=== PATIENT | male | born 1935 | race Caucasian/White ===

== ENCOUNTER 2023-01-07 16:57 | Inpatient (IN) | payer OTHER, BC ==
[2023-01-07] MEDS ORDERED: LACTATED RINGERS SOLUTION 1000 ML INFUS.BAG IV ONE (18:17)
[2023-01-07 19:12] LABS: BASO % 0.5 % (0-2.0); EOS % 0.7 % (0-4.5); HEMATOCRIT 39.5 % (35.4-49); HEMOGLOBIN 13.5 GM/dL (11.7-16.9); LYMPH % 4.8 % (8-40); MCH 29.9 pg (25.7-33.7); MCHC 34.2 g/dl (32.0-35.9); MEAN CELL VOLUME 87.4 fl (80-96); MEAN PLT VOLUME 7.1 fl (7.5-11.1); MONO % 5.3 % (3.8-10.2); NEUT % 88.7 % (42.8-82.8); PLATELET COUNT 398 10^3/uL (134-434); RBC 4.52 M/mm3 (4.00-5.60); RDW 13.1 % (11.9-15.9); WHITE BLOOD COUNT 23.5 K/mm3 (4.0-10.0)
[2023-01-07] MEDS ORDERED: CEFTRIAXONE 1,000 MG in DEXTROSE 5%-WATER - 50 ML IVPB ONE (19:21)
[2023-01-07 19:41] LABS: POTASSIUM 4.4 mmol/L (3.5-5.1)
[2023-01-07 19:44] LABS: ALBUMIN 4.6 g/dl (3.4-5.0); BLOOD UREA NITROGEN 49.9 mg/dL (7-18); CALCIUM 10.4 mg/dL (8.5-10.1)
[2023-01-07 19:48] LABS: CREATININE 2.9 mg/dL (0.55-1.3)
[2023-01-07 19:49] LABS: BILIRUBIN,TOTAL 0.7 mg/dL (0.2-1); TOT PROT 7.7 g/dl (6.4-8.2)
[2023-01-07] MEDS ORDERED: CEFTRIAXONE 1 GM/50 ML BAG ONE (19:51)
[2023-01-07 20:20] LABS: URINE APPEARANCE TURBID; URINE COLOR RED
[2023-01-07 20:22] LABS: URINE RBC >100 /hpf (0-4); URINE WBC 0-3 (NEGATIVE)
[2023-01-07 20:23] LABS: URINE BACTERIA FEW /hpf (NEGATIVE)
[2023-01-07] MEDS ORDERED: amLODIPine BESYLATE 2.5 MG TABLET (FP) PO SCH ×2 (23:41→23:50)
[2023-01-07 23:56] LABS: BASO % 0.4 % (0-2.0); EOS % 0.1 % (0-4.5); HEMATOCRIT 34.4 % (35.4-49); HEMOGLOBIN 11.7 GM/dL (11.7-16.9); LYMPH % 6.7 % (8-40); MCH 29.8 pg (25.7-33.7); MCHC 34.1 g/dl (32.0-35.9); MEAN CELL VOLUME 87.3 fl (80-96); MEAN PLT VOLUME 7.2 fl (7.5-11.1); MONO % 4.3 % (3.8-10.2); NEUT % 88.5 % (42.8-82.8); PLATELET COUNT 367 10^3/uL (134-434); RBC 3.94 M/mm3 (4.00-5.60); RDW 12.9 % (11.9-15.9); WHITE BLOOD COUNT 26.2 K/mm3 (4.0-10.0)
[2023-01-08] MEDS ORDERED: MAG HYDROX/AL HYDROX/SIMETH 30 ML UNIT-DOSE CUP PO ONE (01:18)
[2023-01-08] MEDS ORDERED: MAG HYDROX/AL HYDROX/SIMETH 30 ML UNIT-DOSE CUP ONE (01:26)
[2023-01-08 06:31] LABS: BASO % 0.6 % (0-2.0); HEMATOCRIT 34.7 % (35.4-49); HEMOGLOBIN 11.6 GM/dL (11.7-16.9); LYMPH % 4.5 % (8-40); MCH 29.6 pg (25.7-33.7); MCHC 33.4 g/dl (32.0-35.9); MEAN CELL VOLUME 88.8 fl (80-96); MEAN PLT VOLUME 7.5 fl (7.5-11.1); NEUT % 88.9 % (42.8-82.8); PLATELET COUNT 336 10^3/uL (134-434); RBC 3.91 M/mm3 (4.00-5.60); RDW 13.1 % (11.9-15.9); WHITE BLOOD COUNT 19.9 K/mm3 (4.0-10.0)
[2023-01-08 07:02] LABS: POTASSIUM 3.6 mmol/L (3.5-5.1)
[2023-01-08 07:06] LABS: BLOOD UREA NITROGEN 49.9 mg/dL (7-18)
[2023-01-08 07:09] LABS: CREATININE 2.8 mg/dL (0.55-1.3)
[2023-01-08 08:14] LABS: ANISOCYTOSIS 1+; MACROCYTOSIS 0
[2023-01-08] MEDS ORDERED: amLODIPine BESYLATE 2.5 MG TABLET (FP) ONE (10:28)
[2023-01-08] MEDS ORDERED: MAG HYDROX/AL HYDROX/SIMETH 30 ML UNIT-DOSE CUP PO PRN (10:56)
[2023-01-08] MEDS ORDERED: CEFTRIAXONE 1 GM/50 ML BAG ONE (12:09)
[2023-01-08] MEDS: CEFTRIAXONE 1 GM in DEXTROSE 5%-WATER - 50 ML IVPB SCH (12:20)
[2023-01-08] MEDS ORDERED: SODIUM CHLORIDE 0.45% 1,000 ML IV SCH (12:45)
[2023-01-08] MEDS: amLODIPine BESYLATE 5 MG TABLET (FP) PO SCH (15:15)
[2023-01-08] MEDS: FINASTERIDE 5 MG TABLET (FP) PO SCH (15:15)
[2023-01-08] MEDS ORDERED: ACETAMINOPHEN 325 MG TABLET (FP) PO PRN (17:27)
[2023-01-08] MEDS ORDERED: ATORVASTATIN CA 10 MG TABLET (FP) PO SCH (22:00)
[2023-01-08] MEDS ORDERED: SENNOSIDES 8.6MG TABLET (FP) PO SCH (22:00)
[2023-01-08] MEDS ORDERED: HEPARIN NA (PORCINE) 5,000 UNITS/ML 1ML VIAL SQ SCH (22:00)
[2023-01-09] MEDS ORDERED: POLYETHYLENE GLYCOL (HEALTHYLAX) 3350 17 GM PACKET PO SCH (00:15)
[2023-01-09 07:46] LABS: BASO % 0.5 % (0-2.0); EOS % 1.2 % (0-4.5); HEMATOCRIT 32.5 % (35.4-49); HEMOGLOBIN 11.1 GM/dL (11.7-16.9); LYMPH % 6.9 % (8-40); MCH 30.3 pg (25.7-33.7); MCHC 34.2 g/dl (32.0-35.9); MEAN CELL VOLUME 88.5 fl (80-96); MEAN PLT VOLUME 7.8 fl (7.5-11.1); MONO % 7.7 % (3.8-10.2); NEUT % 83.7 % (42.8-82.8); PLATELET COUNT 307 10^3/uL (134-434); RBC 3.67 M/mm3 (4.00-5.60); RDW 12.9 % (11.9-15.9); WHITE BLOOD COUNT 17.9 K/mm3 (4.0-10.0)
[2023-01-09 08:04] LABS: POTASSIUM 3.2 mmol/L (3.5-5.1)
[2023-01-09 08:19] LABS: BLOOD UREA NITROGEN 44.6 mg/dL (7-18); CREATININE 2.5 mg/dL (0.55-1.3)
[2023-01-09 08:20] LABS: CALCIUM 8.9 mg/dL (8.5-10.1); TOT PROT 5.7 g/dl (6.4-8.2)
[2023-01-09 08:26] LABS: ALBUMIN 3.3 g/dl (3.4-5.0)
[2023-01-09] MEDS ORDERED: POTASSIUM CHLORIDE TABS 10 MEQ TABLET.ER (FP) PO ONE (08:50)
[2023-01-09] MEDS: amLODIPine BESYLATE 5 MG TABLET (FP) PO SCH (10:17)
[2023-01-09] MEDS: CEFTRIAXONE 1 GM in DEXTROSE 5%-WATER - 50 ML IVPB SCH (10:18)
[2023-01-09] MEDS: FINASTERIDE 5 MG TABLET (FP) PO SCH (10:18)
[2023-01-09 13:36] VITALS: BP 163/82; PULSE 99; RESP 20; TEMP 98.2
== END 2023-01-09 18:34 | disposition home or self-care (01) | DRG 683 ==
LOC: JER 16:57 → JERBED 19:48 → J7W 01-08 12:45
PROVIDERS: ADMIT Specialist; ATTEND Specialist
DX: I12.9 Hypertensive chronic kidney disease with stage 1 through stage 4 chronic kidney disease, or unspecified chronic kidney disease (principal); N13.30 Unspecified hydronephrosis; R31.9 Hematuria, unspecified; N18.9 Chronic kidney disease, unspecified; E78.5 Hyperlipidemia, unspecified; D72.829 Elevated white blood cell count, unspecified; N40.1 Benign prostatic hyperplasia with lower urinary tract symptoms; R33.9 Retention of urine, unspecified
CPT/HCPCS: 36415; 71045-TC-FY; 76775-TC; 80048; 80053; 81003; 82962; 84484; 85025; 86850; 86900; 86901; 87086; 93005; 93010; 99285-25

== ENCOUNTER 2023-03-08 09:39 | Emergency (ER) | payer OTHER, BC ==
[2023-03-08 09:54] VITALS: BP 153/78; PULSE 75; RESP 17; TEMP 98.3; BMI 22.2
== END 2023-03-08 11:20 | disposition home or self-care (01) ==
LOC: FER 09:39
DX: Z46.6 Encounter for fitting and adjustment of urinary device (principal)
CPT/HCPCS: 99282-25

== ENCOUNTER 2023-03-18 18:58 | Inpatient (IN) | payer OTHER, BC ==
[2023-03-18] MEDS ORDERED: ACETAMINOPHEN 1000 MG/100 ML BAG IVPB ONE (19:48)
[2023-03-18] MEDS ORDERED: PIPERACILLIN/TAZOB 3.375 GM 3.375 GM in DEXTROSE 5%-WATER - 50 ML IVPB ONE (19:48)
[2023-03-18] MEDS ORDERED: VANCOMYCIN 1,000 MG in DEXTROSE 5%-WATER - 250 ML IVPB ONE (19:48)
[2023-03-18] MEDS ORDERED: ACETAMINOPHEN INJECTION 100 ML IVPB ONE (19:50)
[2023-03-18] MEDS ORDERED: PIPERACILLIN/TAZOB 3.375 GM 3.375 GM/50 ML BAG IVPB ONE (19:51)
[2023-03-18 20:15] LABS: HEMATOCRIT 29.2 % (35.4-49); HEMOGLOBIN 9.5 GM/dL (11.7-16.9); MCH 27.8 pg (25.7-33.7); MCHC 32.5 g/dl (32.0-35.9); MEAN CELL VOLUME 85.6 fl (80-96); MEAN PLT VOLUME 6.5 fl (7.5-11.1); PLATELET COUNT 460 10^3/uL (134-434); RBC 3.41 M/mm3 (4.00-5.60); RDW 14.5 % (11.9-15.9)
[2023-03-18 20:21] LABS: WHITE BLOOD COUNT 31.3 K/mm3 (4.0-10.0)
[2023-03-18 20:27] LABS: INR 1.39 (0.83-1.09); PROTHROMBIN TIME (PATIENT) 16.1 SEC (9.7-13.0)
[2023-03-18 20:30] LABS: ACTIVATED PTT 31.5 SECONDS (25.2-36.5)
[2023-03-18 20:42] LABS: CHLORIDE 88 mmol/L (98-107); POTASSIUM 4.1 mmol/L (3.5-5.1); SODIUM 121 mmol/L (136-145)
[2023-03-18 20:44] LABS: CALCIUM 8.4 mg/dL (8.5-10.1)
[2023-03-18 20:45] LABS: ALBUMIN 2.5 g/dl (3.4-5.0); ANION GAP 12 mmol/L (4-13); BLOOD UREA NITROGEN 43.8 mg/dL (7-18); CO2 22 mmol/L (21-32); GLUCOSE,RANDOM 158 mg/dL (74-106)
[2023-03-18 20:46] LABS: EPI CELLS 2 /uL (0-25.1); HYALINE CASTS 0 /uL (0-3.1); PH,URINE 6.5 (5.0-8.0); URINE APPEARANCE TURBID; URINE BACTERIA 921 /uL (0-1359); URINE BILIRUBIN NEGATIVE (NEGATIVE); URINE COLOR YELLOW; URINE GLUCOSE (UA) NEGATIVE (NEGATIVE); URINE KETONE NEGATIVE (NEGATIVE); URINE LEUK ESTERASE 3+ (NEGATIVE); URINE NITRITE NEGATIVE (NEGATIVE); URINE PROTEIN 3+ (NEGATIVE); URINE RBC 322 /uL (0-23.9); URINE UROBILINOGEN 0.2 mg/dL (0.2-1.0); URINE WBC 7323 /uL (0-25.8)
[2023-03-18 20:46] LABS: VENOUS O2 SATURATION 91.7 % (70-80); VENOUS PCO2 32.8 mmHg (38-52); VENOUS PH 7.454 (7.310-7.410)
[2023-03-18 20:48] LABS: CREATININE 2.5 mg/dL (0.55-1.3); SGOT/AST 34 U/L (15-37)
[2023-03-18 20:50] LABS: BILIRUBIN,TOTAL 0.4 mg/dL (0.2-1); TOT PROT 5.6 g/dl (6.4-8.2)
[2023-03-18 20:51] LABS: ALK PHOS 66 U/L (45-117)
[2023-03-18 20:55] LABS: SGPT/ALT 27 U/L (13-61)
[2023-03-18] MEDS: LACTATED RINGERS SOLUTION 1,000 ML/1,000 ML INFUS.BAG IV SCH (20:58)
[2023-03-18 21:25] LABS: ANISOCYTOSIS 0; MACROCYTOSIS 0; OVALOCYTE 1+
[2023-03-18] MEDS ORDERED: VANCOMYCIN 1 GRAM (PRE-DOCKED) 1,000 MG/250 ML BAG IVPB ONE (21:38)
[2023-03-18] MEDS ORDERED: SODIUM CHLORIDE 1,000 ML IV SCH (21:45)
[2023-03-18] MEDS ORDERED: MAG HYDROX/AL HYDROX/SIMETH 30 ML UNIT-DOSE CUP PO PRN (23:29)
[2023-03-19] MEDS ORDERED: ACETAMINOPHEN 1000 MG/100 ML BAG IVPB ONE (05:53)
[2023-03-19] MEDS ORDERED: ACETAMINOPHEN INJECTION 100 ML IVPB ONE (05:54)
[2023-03-19] MEDS ORDERED: ACETAMINOPHEN 325 MG TABLET (FP) ONE ×2 (09:15→13:16)
[2023-03-19] MEDS: amLODIPine BESYLATE 5 MG TABLET (FP) PO SCH (09:22)
[2023-03-19] MEDS: ACETAMINOPHEN 325 MG TABLET (FP) PO PRN ×2 (09:22→23:35)
[2023-03-19] MEDS: FINASTERIDE 5 MG TABLET (FP) PO SCH (09:22)
[2023-03-19 12:01] LABS: HEMATOCRIT 28.6 % (35.4-49); HEMOGLOBIN 9.4 GM/dL (11.7-16.9); MCH 27.9 pg (25.7-33.7); MCHC 32.9 g/dl (32.0-35.9); MEAN PLT VOLUME 6.4 fl (7.5-11.1); PLATELET COUNT 473 10^3/uL (134-434); RBC 3.36 M/mm3 (4.00-5.60); RDW 14.4 % (11.9-15.9)
[2023-03-19 12:18] LABS: POTASSIUM 3.9 mmol/L (3.5-5.1)
[2023-03-19 12:20] LABS: CALCIUM 8.5 mg/dL (8.5-10.1)
[2023-03-19 12:21] LABS: ALBUMIN 2.2 g/dl (3.4-5.0); BLOOD UREA NITROGEN 42.1 mg/dL (7-18)
[2023-03-19 12:21] LABS: WHITE BLOOD COUNT 32.1 K/mm3 (4.0-10.0)
[2023-03-19 12:24] LABS: CREATININE 2.4 mg/dL (0.55-1.3)
[2023-03-19 12:26] LABS: BILIRUBIN,TOTAL 0.3 mg/dL (0.2-1); TOT PROT 5.1 g/dl (6.4-8.2)
[2023-03-19 12:51] LABS: ANISOCYTOSIS 0; MACROCYTOSIS 0
[2023-03-19] MEDS: SODIUM CHLORIDE 0.45% 1,000 ML IV SCH (13:22)
[2023-03-19] MEDS ORDERED: PIPERACILLIN/TAZOB 2.25 GM 2.25 GM/50 ML BAG IVPB ONE (13:23)
[2023-03-19] MEDS ORDERED: ACETAMINOPHEN 500 MG TABLET (FP) PO ONE (13:30)
[2023-03-19] MEDS: PIPERACILLIN/TAZOB 2.25 GM 2.25 GM in DEXTROSE 5%-WATER - 50 ML IVPB SCH ×2 (13:35→19:14)
[2023-03-19] MEDS: ALBUTEROL SO4 2.5/IPRATROPIUM 0.5 INH SOL 3 ML VIAL.NEB. NEB PRN (13:40)
[2023-03-19] MEDS ORDERED: PIPERACILLIN/TAZOB 2.25 GM 2.25 GM in DEXTROSE 5%-WATER - 50 ML IVPB ONE (14:00)
[2023-03-19] MEDS ORDERED: ACETAMINOPHEN 325 MG TABLET (FP) PO ONE (14:00)
[2023-03-19] MEDS ORDERED: VANCOMYCIN 1 GRAM (PRE-DOCKED) 1,000 MG/250 ML BAG IVPB ONE ×2 (14:00→14:06)
[2023-03-19] MEDS: HEPARIN NA (PORCINE) 5,000 UNITS/ML 1ML VIAL SQ SCH (22:05)
[2023-03-19] MEDS: ATORVASTATIN CA 10 MG TABLET (FP) PO SCH (22:05)
[2023-03-19] MEDS: POLYETHYLENE GLYCOL (HEALTHYLAX) 3350 17 GM PACKET PO SCH (22:06)
[2023-03-19] MEDS: SENNOSIDES 8.6MG TABLET (FP) PO SCH (22:06)
[2023-03-19] MEDS: LACTATED RINGERS SOLUTION 1,000 ML/1,000 ML INFUS.BAG IV SCH (22:07)
[2023-03-20] MEDS: PIPERACILLIN/TAZOB 2.25 GM 2.25 GM in DEXTROSE 5%-WATER - 50 ML IVPB SCH ×3 (01:11→17:12)
[2023-03-20] MEDS: SODIUM CHLORIDE 0.45% 1,000 ML IV SCH ×2 (07:09→13:30)
[2023-03-20] MEDS: amLODIPine BESYLATE 5 MG TABLET (FP) PO SCH (09:58)
[2023-03-20] MEDS: FINASTERIDE 5 MG TABLET (FP) PO SCH (09:58)
[2023-03-20] MEDS: HEPARIN NA (PORCINE) 5,000 UNITS/ML 1ML VIAL SQ SCH ×2 (09:59→21:42)
[2023-03-20 10:19] LABS: HEMATOCRIT 26.3 % (35.4-49); HEMOGLOBIN 8.6 GM/dL (11.7-16.9); MCH 27.8 pg (25.7-33.7); MCHC 32.8 g/dl (32.0-35.9); MEAN CELL VOLUME 84.7 fl (80-96); MEAN PLT VOLUME 6.5 fl (7.5-11.1); PLATELET COUNT 479 10^3/uL (134-434); RDW 14.9 % (11.9-15.9)
[2023-03-20 10:38] LABS: POTASSIUM 3.7 mmol/L (3.5-5.1)
[2023-03-20 10:45] LABS: ALBUMIN 2.1 g/dl (3.4-5.0); BLOOD UREA NITROGEN 45.4 mg/dL (7-18); CALCIUM 8.6 mg/dL (8.5-10.1)
[2023-03-20 10:48] LABS: CREATININE 2.9 mg/dL (0.55-1.3)
[2023-03-20 10:50] LABS: BILIRUBIN,TOTAL 0.2 mg/dL (0.2-1); TOT PROT 5.1 g/dl (6.4-8.2)
[2023-03-20 11:27] LABS: ANISOCYTOSIS 0; HELMET CELLS 0; HOWELL-JOLLY BODIES 0; MACROCYTOSIS 0; OVALOCYTE 0; ROULEAU 0; SICKELED CELLS 0; TARGET CELLS 0; TEAR DROP CELLS 0; TOXIC GRANULATION 0
[2023-03-20] MEDS: ACETAMINOPHEN 325 MG TABLET (FP) PO PRN ×2 (11:49→18:59)
[2023-03-20 15:49] LABS: WHITE BLOOD COUNT 32.8 K/mm3 (4.0-10.0)
[2023-03-20] MEDS: SENNOSIDES 8.6MG TABLET (FP) PO SCH (21:41)
[2023-03-20] MEDS: ATORVASTATIN CA 10 MG TABLET (FP) PO SCH (21:41)
[2023-03-20] MEDS: POLYETHYLENE GLYCOL (HEALTHYLAX) 3350 17 GM PACKET PO SCH (21:42)
[2023-03-21] MEDS: PIPERACILLIN/TAZOB 2.25 GM 2.25 GM in DEXTROSE 5%-WATER - 50 ML IVPB SCH ×3 (03:14→17:29)
[2023-03-21] MEDS: ACETAMINOPHEN 325 MG TABLET (FP) PO PRN ×2 (06:14→16:06)
[2023-03-21] MEDS: ALBUTEROL SO4 2.5/IPRATROPIUM 0.5 INH SOL 3 ML VIAL.NEB. NEB PRN ×2 (08:44→16:43)
[2023-03-21] MEDS: FINASTERIDE 5 MG TABLET (FP) PO SCH (09:42)
[2023-03-21] MEDS: amLODIPine BESYLATE 5 MG TABLET (FP) PO SCH (09:42)
[2023-03-21] MEDS: HEPARIN NA (PORCINE) 5,000 UNITS/ML 1ML VIAL SQ SCH ×2 (09:43→21:50)
[2023-03-21 10:43] LABS: HEMATOCRIT 24.9 % (35.4-49); HEMOGLOBIN 8.1 GM/dL (11.7-16.9); MCH 27.7 pg (25.7-33.7); MCHC 32.6 g/dl (32.0-35.9); MEAN CELL VOLUME 84.9 fl (80-96); MEAN PLT VOLUME 6.5 fl (7.5-11.1); PLATELET COUNT 416 10^3/uL (134-434); RBC 2.93 M/mm3 (4.00-5.60); WHITE BLOOD COUNT 22.6 K/mm3 (4.0-10.0)
[2023-03-21 11:07] LABS: POTASSIUM 3.7 mmol/L (3.5-5.1)
[2023-03-21 11:09] LABS: CALCIUM 8.1 mg/dL (8.5-10.1)
[2023-03-21 11:10] LABS: ALBUMIN 1.9 g/dl (3.4-5.0); BLOOD UREA NITROGEN 44.5 mg/dL (7-18)
[2023-03-21 11:13] LABS: CREATININE 2.8 mg/dL (0.55-1.3)
[2023-03-21 11:15] LABS: BILIRUBIN,TOTAL 0.3 mg/dL (0.2-1); TOT PROT 4.8 g/dl (6.4-8.2)
[2023-03-21 12:05] LABS: ANISOCYTOSIS 0; HELMET CELLS 0; HOWELL-JOLLY BODIES 0; MACROCYTOSIS 0; OVALOCYTE 0; ROULEAU 0; SICKELED CELLS 0; TARGET CELLS 0; TEAR DROP CELLS 0; TOXIC GRANULATION 0
[2023-03-21] MEDS: SODIUM CHLORIDE 0.45% 1,000 ML IV SCH ×2 (13:58→23:33)
[2023-03-21] MEDS: POLYETHYLENE GLYCOL (HEALTHYLAX) 3350 17 GM PACKET PO SCH (21:50)
[2023-03-21] MEDS: ATORVASTATIN CA 10 MG TABLET (FP) PO SCH (21:51)
[2023-03-21] MEDS: SENNOSIDES 8.6MG TABLET (FP) PO SCH (21:51)
[2023-03-22] MEDS: PIPERACILLIN/TAZOB 2.25 GM 2.25 GM in DEXTROSE 5%-WATER - 50 ML IVPB SCH ×3 (01:57→17:50)
[2023-03-22] MEDS: ACETAMINOPHEN 325 MG TABLET (FP) PO PRN ×2 (02:29→11:13)
[2023-03-22] MEDS: ALBUTEROL SO4 2.5/IPRATROPIUM 0.5 INH SOL 3 ML VIAL.NEB. NEB PRN ×4 (08:03→20:55)
[2023-03-22] MEDS: amLODIPine BESYLATE 5 MG TABLET (FP) PO SCH (09:54)
[2023-03-22] MEDS: FINASTERIDE 5 MG TABLET (FP) PO SCH (09:54)
[2023-03-22] MEDS: HEPARIN NA (PORCINE) 5,000 UNITS/ML 1ML VIAL SQ SCH ×2 (09:54→22:27)
[2023-03-22 10:24] LABS: HEMATOCRIT 24.7 % (35.4-49); HEMOGLOBIN 8.4 GM/dL (11.7-16.9); MCHC 34.1 g/dl (32.0-35.9); MEAN CELL VOLUME 84.9 fl (80-96); MEAN PLT VOLUME 6.3 fl (7.5-11.1); PLATELET COUNT 444 10^3/uL (134-434); RBC 2.91 M/mm3 (4.00-5.60); RDW 15.2 % (11.9-15.9); WHITE BLOOD COUNT 22.9 K/mm3 (4.0-10.0)
[2023-03-22 11:05] LABS: CALCIUM 8.8 mg/dL (8.5-10.1)
[2023-03-22 11:06] LABS: BLOOD UREA NITROGEN 39.6 mg/dL (7-18)
[2023-03-22 11:09] LABS: CREATININE 2.6 mg/dL (0.55-1.3)
[2023-03-22 11:10] LABS: BILIRUBIN,TOTAL 0.6 mg/dL (0.2-1); TOT PROT 5.2 g/dl (6.4-8.2)
[2023-03-22 11:11] LABS: ANISOCYTOSIS 0; MACROCYTOSIS 0
[2023-03-22] MEDS: SODIUM CHLORIDE 0.45% 1,000 ML IV SCH (12:21)
[2023-03-22] MEDS ORDERED: MAGNESIUM HYDROX 2400MG/30ML ORAL SUSPENSION 30 ML CUP PO PRN (14:56)
[2023-03-22] MEDS: POLYETHYLENE GLYCOL (HEALTHYLAX) 3350 17 GM PACKET PO SCH (22:26)
[2023-03-22] MEDS: SENNOSIDES 8.6MG TABLET (FP) PO SCH (22:27)
[2023-03-22] MEDS: ATORVASTATIN CA 10 MG TABLET (FP) PO SCH (22:27)
[2023-03-23] MEDS: PIPERACILLIN/TAZOB 2.25 GM 2.25 GM in DEXTROSE 5%-WATER - 50 ML IVPB SCH ×2 (02:10→09:41)
[2023-03-23] MEDS: SODIUM CHLORIDE 0.45% 1,000 ML IV SCH ×2 (02:13→17:43)
[2023-03-23] MEDS: ALBUTEROL SO4 2.5/IPRATROPIUM 0.5 INH SOL 3 ML VIAL.NEB. NEB PRN ×4 (07:45→23:55)
[2023-03-23] MEDS: ASPIRIN COATED 81 MG TABLET.EC PO SCH (09:40)
[2023-03-23] MEDS: FINASTERIDE 5 MG TABLET (FP) PO SCH (09:40)
[2023-03-23] MEDS: amLODIPine BESYLATE 5 MG TABLET (FP) PO SCH (09:40)
[2023-03-23] MEDS: HEPARIN NA (PORCINE) 5,000 UNITS/ML 1ML VIAL SQ SCH ×2 (09:41→22:00)
[2023-03-23 09:51] LABS: HEMATOCRIT 27.9 % (35.4-49); HEMOGLOBIN 9.4 GM/dL (11.7-16.9); MCH 28.6 pg (25.7-33.7); MCHC 33.7 g/dl (32.0-35.9); MEAN CELL VOLUME 84.9 fl (80-96); MEAN PLT VOLUME 6.2 fl (7.5-11.1); PLATELET COUNT 500 10^3/uL (134-434); POTASSIUM 3.8 mmol/L (3.5-5.1); RBC 3.29 M/mm3 (4.00-5.60); RDW 15.6 % (11.9-15.9); WHITE BLOOD COUNT 23.3 K/mm3 (4.0-10.0)
[2023-03-23 10:12] LABS: ALBUMIN 2.4 g/dl (3.4-5.0); BLOOD UREA NITROGEN 40.1 mg/dL (7-18)
[2023-03-23 10:15] LABS: CREATININE 2.5 mg/dL (0.55-1.3)
[2023-03-23 10:17] LABS: BILIRUBIN,TOTAL 0.7 mg/dL (0.2-1); TOT PROT 5.7 g/dl (6.4-8.2)
[2023-03-23 11:44] LABS: ANISOCYTOSIS 2+; MACROCYTOSIS 0
[2023-03-23] MEDS ORDERED: LORATADINE 10 MG TABLET PO ONE (17:45)
[2023-03-23] MEDS: POLYETHYLENE GLYCOL (HEALTHYLAX) 3350 17 GM PACKET PO SCH (21:59)
[2023-03-23] MEDS: SENNOSIDES 8.6MG TABLET (FP) PO SCH (21:59)
[2023-03-23] MEDS: ATORVASTATIN CA 10 MG TABLET (FP) PO SCH (21:59)
[2023-03-24] MEDS: SODIUM CHLORIDE 0.45% 1,000 ML IV SCH ×2 (02:06→13:26)
[2023-03-24] MEDS: FINASTERIDE 5 MG TABLET (FP) PO SCH (09:40)
[2023-03-24] MEDS: ASPIRIN COATED 81 MG TABLET.EC PO SCH (09:40)
[2023-03-24] MEDS: HEPARIN NA (PORCINE) 5,000 UNITS/ML 1ML VIAL SQ SCH ×2 (09:40→21:40)
[2023-03-24] MEDS: amLODIPine BESYLATE 5 MG TABLET (FP) PO SCH (09:40)
[2023-03-24 11:04] LABS: POTASSIUM 4.2 mmol/L (3.5-5.1)
[2023-03-24 11:06] LABS: CALCIUM 8.7 mg/dL (8.5-10.1)
[2023-03-24 11:07] LABS: ALBUMIN 2.4 g/dl (3.4-5.0); BLOOD UREA NITROGEN 43.3 mg/dL (7-18)
[2023-03-24 11:10] LABS: CREATININE 2.3 mg/dL (0.55-1.3)
[2023-03-24 11:11] LABS: BILIRUBIN,TOTAL 0.6 mg/dL (0.2-1); HEMATOCRIT 29.6 % (35.4-49); HEMOGLOBIN 9.6 GM/dL (11.7-16.9); MCH 27.8 pg (25.7-33.7); MCHC 32.3 g/dl (32.0-35.9); MEAN PLT VOLUME 6.4 fl (7.5-11.1); PLATELET COUNT 672 10^3/uL (134-434); RBC 3.44 M/mm3 (4.00-5.60); RDW 15.3 % (11.9-15.9); TOT PROT 6.1 g/dl (6.4-8.2); WHITE BLOOD COUNT 27.9 K/mm3 (4.0-10.0)
[2023-03-24 12:50] LABS: ANISOCYTOSIS 0; MACROCYTOSIS 0
[2023-03-24] MEDS: ATORVASTATIN CA 10 MG TABLET (FP) PO SCH (21:40)
[2023-03-24] MEDS: POLYETHYLENE GLYCOL (HEALTHYLAX) 3350 17 GM PACKET PO SCH (21:41)
[2023-03-24 22:58] VITALS: RESP 18
[2023-03-25] MEDS: SODIUM CHLORIDE 0.45% 1,000 ML IV SCH (05:47)
[2023-03-25] MEDS: ALBUTEROL SO4 2.5/IPRATROPIUM 0.5 INH SOL 3 ML VIAL.NEB. NEB PRN ×2 (07:40→15:35)
[2023-03-25 10:03] LABS: HEMATOCRIT 29.9 % (35.4-49); HEMOGLOBIN 9.8 GM/dL (11.7-16.9); MCH 27.9 pg (25.7-33.7); MCHC 32.8 g/dl (32.0-35.9); MEAN CELL VOLUME 84.9 fl (80-96); MEAN PLT VOLUME 6.3 fl (7.5-11.1); PLATELET COUNT 715 10^3/uL (134-434); RBC 3.52 M/mm3 (4.00-5.60); RDW 15.4 % (11.9-15.9); WHITE BLOOD COUNT 22.9 K/mm3 (4.0-10.0)
[2023-03-25 10:27] LABS: POTASSIUM 4.4 mmol/L (3.5-5.1)
[2023-03-25 10:36] LABS: ALBUMIN 2.5 g/dl (3.4-5.0); BLOOD UREA NITROGEN 47.1 mg/dL (7-18)
[2023-03-25 10:39] LABS: CREATININE 2.1 mg/dL (0.55-1.3)
[2023-03-25 10:41] LABS: BILIRUBIN,TOTAL 0.6 mg/dL (0.2-1)
[2023-03-25] MEDS: FINASTERIDE 5 MG TABLET (FP) PO SCH (11:58)
[2023-03-25] MEDS: HEPARIN NA (PORCINE) 5,000 UNITS/ML 1ML VIAL SQ SCH ×2 (11:58→21:34)
[2023-03-25] MEDS: PANTOPRAZOLE 20 MG TABLET PO SCH (11:58)
[2023-03-25] MEDS: amLODIPine BESYLATE 5 MG TABLET (FP) PO SCH (11:58)
[2023-03-25] MEDS: ATORVASTATIN CA 10 MG TABLET (FP) PO SCH (21:34)
[2023-03-25] MEDS: POLYETHYLENE GLYCOL (HEALTHYLAX) 3350 17 GM PACKET PO SCH (21:35)
[2023-03-26] MEDS: amLODIPine BESYLATE 5 MG TABLET (FP) PO SCH (09:52)
[2023-03-26] MEDS: FINASTERIDE 5 MG TABLET (FP) PO SCH (09:52)
[2023-03-26] MEDS: HEPARIN NA (PORCINE) 5,000 UNITS/ML 1ML VIAL SQ SCH ×2 (09:53→21:45)
[2023-03-26] MEDS: PANTOPRAZOLE 20 MG TABLET PO SCH (09:53)
[2023-03-26] MEDS: POLYETHYLENE GLYCOL (HEALTHYLAX) 3350 17 GM PACKET PO SCH (21:45)
[2023-03-26] MEDS: ATORVASTATIN CA 10 MG TABLET (FP) PO SCH (21:46)
[2023-03-27 09:13] LABS: HEMATOCRIT 31.7 % (35.4-49); HEMOGLOBIN 10.1 GM/dL (11.7-16.9); MCHC 31.8 g/dl (32.0-35.9); MEAN PLT VOLUME 6.4 fl (7.5-11.1); PLATELET COUNT 935 10^3/uL (134-434); RBC 3.73 M/mm3 (4.00-5.60); RDW 16.2 % (11.9-15.9)
[2023-03-27 09:28] LABS: POTASSIUM 4.8 mmol/L (3.5-5.1)
[2023-03-27 09:30] LABS: ALBUMIN 2.7 g/dl (3.4-5.0); BLOOD UREA NITROGEN 57.9 mg/dL (7-18); CALCIUM 9.7 mg/dL (8.5-10.1)
[2023-03-27 09:33] LABS: CREATININE 2.2 mg/dL (0.55-1.3)
[2023-03-27 09:35] LABS: BILIRUBIN,TOTAL 0.7 mg/dL (0.2-1); TOT PROT 6.5 g/dl (6.4-8.2)
[2023-03-27 09:47] LABS: ANISOCYTOSIS 3+; MACROCYTOSIS 0
[2023-03-27] MEDS: PANTOPRAZOLE 20 MG TABLET PO SCH (09:48)
[2023-03-27] MEDS: amLODIPine BESYLATE 5 MG TABLET (FP) PO SCH (09:48)
[2023-03-27] MEDS: FINASTERIDE 5 MG TABLET (FP) PO SCH (09:48)
[2023-03-27] MEDS: HEPARIN NA (PORCINE) 5,000 UNITS/ML 1ML VIAL SQ SCH ×2 (09:48→22:04)
[2023-03-27 14:31] LABS: EPI CELLS 3 /uL (0-25.1); HYALINE CASTS 1 /uL (0-3.1); PH,URINE 5.5 (5.0-8.0); URINE APPEARANCE CLOUDY; URINE BACTERIA 38 /uL (0-1359); URINE BILIRUBIN NEGATIVE (NEGATIVE); URINE COLOR YELLOW; URINE GLUCOSE (UA) NEGATIVE (NEGATIVE); URINE KETONE NEGATIVE (NEGATIVE); URINE LEUK ESTERASE 3+ (NEGATIVE); URINE NITRITE NEGATIVE (NEGATIVE); URINE PROTEIN 2+ (NEGATIVE); URINE RBC 107 /uL (0-23.9); URINE UROBILINOGEN 0.2 mg/dL (0.2-1.0); URINE WBC 1173 /uL (0-25.8)
[2023-03-27] MEDS: POLYETHYLENE GLYCOL (HEALTHYLAX) 3350 17 GM PACKET PO SCH (22:04)
[2023-03-27] MEDS: ATORVASTATIN CA 10 MG TABLET (FP) PO SCH (22:04)
[2023-03-28 09:22] LABS: HEMATOCRIT 32.1 % (35.4-49); HEMOGLOBIN 10.3 GM/dL (11.7-16.9); MCH 27.6 pg (25.7-33.7); MCHC 32.2 g/dl (32.0-35.9); MEAN CELL VOLUME 85.7 fl (80-96); PLATELET COUNT 961 10^3/uL (134-434); RBC 3.75 M/mm3 (4.00-5.60); RDW 16.1 % (11.9-15.9)
[2023-03-28 09:29] LABS: POTASSIUM 5.6 mmol/L (3.5-5.1)
[2023-03-28 09:31] LABS: CALCIUM 9.8 mg/dL (8.5-10.1)
[2023-03-28 09:33] LABS: BLOOD UREA NITROGEN 66.6 mg/dL (7-18)
[2023-03-28 09:37] LABS: CREATININE 2.4 mg/dL (0.55-1.3)
[2023-03-28 09:38] LABS: TOT PROT 6.8 g/dl (6.4-8.2)
[2023-03-28 09:39] LABS: BILIRUBIN,TOTAL 0.6 mg/dL (0.2-1)
[2023-03-28] MEDS: FINASTERIDE 5 MG TABLET (FP) PO SCH (10:13)
[2023-03-28] MEDS: HEPARIN NA (PORCINE) 5,000 UNITS/ML 1ML VIAL SQ SCH ×2 (10:13→21:41)
[2023-03-28] MEDS: amLODIPine BESYLATE 5 MG TABLET (FP) PO SCH (10:13)
[2023-03-28] MEDS: PANTOPRAZOLE 20 MG TABLET PO SCH (10:13)
[2023-03-28 10:43] LABS: ANISOCYTOSIS 1+; MACROCYTOSIS 0
[2023-03-28 16:37] LABS: BASO % 0.5 % (0-2.0); EOS % 0.6 % (0-4.5); HEMATOCRIT 27.1 % (35.4-49); HEMOGLOBIN 8.9 GM/dL (11.7-16.9); LYMPH % 5.4 % (8-40); MCHC 32.9 g/dl (32.0-35.9); MEAN CELL VOLUME 85.2 fl (80-96); MEAN PLT VOLUME 6.6 fl (7.5-11.1); MONO % 7.3 % (3.8-10.2); NEUT % 86.2 % (42.8-82.8); PLATELET COUNT 771 10^3/uL (134-434); RBC 3.18 M/mm3 (4.00-5.60); RDW 16.2 % (11.9-15.9); WHITE BLOOD COUNT 19.8 K/mm3 (4.0-10.0)
[2023-03-28 16:54] LABS: POTASSIUM 4.8 mmol/L (3.5-5.1)
[2023-03-28 16:57] LABS: CALCIUM 8.6 mg/dL (8.5-10.1)
[2023-03-28 16:58] LABS: BLOOD UREA NITROGEN 66.9 mg/dL (7-18)
[2023-03-28 17:01] LABS: CREATININE 2.7 mg/dL (0.55-1.3)
[2023-03-28] MEDS: POLYETHYLENE GLYCOL (HEALTHYLAX) 3350 17 GM PACKET PO SCH (21:41)
[2023-03-28] MEDS: ATORVASTATIN CA 10 MG TABLET (FP) PO SCH (21:41)
[2023-03-29] MEDS: PANTOPRAZOLE 20 MG TABLET PO SCH (09:13)
[2023-03-29] MEDS: FINASTERIDE 5 MG TABLET (FP) PO SCH (09:13)
[2023-03-29] MEDS: amLODIPine BESYLATE 5 MG TABLET (FP) PO SCH (09:13)
[2023-03-29] MEDS: HEPARIN NA (PORCINE) 5,000 UNITS/ML 1ML VIAL SQ SCH ×2 (09:13→21:56)
[2023-03-29 10:25] LABS: HEMATOCRIT 28.6 % (35.4-49); HEMOGLOBIN 9.4 GM/dL (11.7-16.9); MCH 28.1 pg (25.7-33.7); MEAN CELL VOLUME 85.1 fl (80-96); MEAN PLT VOLUME 6.7 fl (7.5-11.1); PLATELET COUNT 886 10^3/uL (134-434); RBC 3.36 M/mm3 (4.00-5.60); WHITE BLOOD COUNT 15.9 K/mm3 (4.0-10.0)
[2023-03-29 10:42] LABS: POTASSIUM 4.8 mmol/L (3.5-5.1)
[2023-03-29 10:54] LABS: CALCIUM 9.7 mg/dL (8.5-10.1)
[2023-03-29 10:55] LABS: ALBUMIN 2.8 g/dl (3.4-5.0); BLOOD UREA NITROGEN 66.9 mg/dL (7-18)
[2023-03-29 10:58] LABS: BILIRUBIN,TOTAL 0.6 mg/dL (0.2-1); CREATININE 2.3 mg/dL (0.55-1.3); TOT PROT 6.2 g/dl (6.4-8.2)
[2023-03-29 11:02] LABS: ANISOCYTOSIS 0; MACROCYTOSIS 0
[2023-03-29] MEDS: ATORVASTATIN CA 10 MG TABLET (FP) PO SCH (21:56)
[2023-03-29] MEDS: POLYETHYLENE GLYCOL (HEALTHYLAX) 3350 17 GM PACKET PO SCH (21:57)
[2023-03-30] MEDS: PANTOPRAZOLE 20 MG TABLET PO SCH (10:07)
[2023-03-30] MEDS: amLODIPine BESYLATE 5 MG TABLET (FP) PO SCH (10:07)
[2023-03-30] MEDS: FINASTERIDE 5 MG TABLET (FP) PO SCH (10:07)
[2023-03-30] MEDS: HEPARIN NA (PORCINE) 5,000 UNITS/ML 1ML VIAL SQ SCH (10:07)
[2023-03-30 20:33] VITALS: BP 104/60; PULSE 76; TEMP 98.6
[2023-03-30 22:12] VITALS: BMI 20.6
== END 2023-03-30 20:45 | disposition home health service (06) | DRG 698 ==
LOC: JER 18:58 → JERBED 20:03 → J6S 03-19 15:13
PROVIDERS: ADMIT Internal Medicine; ATTEND Internal Medicine
DX: T83.511A Infection and inflammatory reaction due to indwelling urethral catheter, initial encounter (principal); A41.9 Sepsis, unspecified organism; G93.41 Metabolic encephalopathy; E87.1 Hypo-osmolality and hyponatremia; I24.89 Other forms of acute ischemic heart disease; N17.9 Acute kidney failure, unspecified; J98.11 Atelectasis; N40.0 Benign prostatic hyperplasia without lower urinary tract symptoms; I12.9 Hypertensive chronic kidney disease with stage 1 through stage 4 chronic kidney disease, or unspecified chronic kidney disease; N18.9 Chronic kidney disease, unspecified; E78.5 Hyperlipidemia, unspecified; Y84.6 Urinary catheterization as the cause of abnormal reaction of the patient, or of later complication, without mention of misadventure at the time of the procedure; R33.8 Other retention of urine; R31.9 Hematuria, unspecified; R79.89 Other specified abnormal findings of blood chemistry; D75.838 Other thrombocytosis
CPT/HCPCS: 0241U-QW; 36415; 70450-TC; 71045-TC-FY; 74176-TC; 74230-TC-FY; 76700-TC; 80048; 80053; 81003; 82272; 82550; 82553; 82607; 82728; 82746; 82803; 83540; 83605; 84484; 85025; 85027; 85045; 85610; 85730; 86704; 86803; 86850; 86900; 86901; 87040; 87086; 87186; 87340; 87517; 87522; 87635; 87804; 92611-GN; 93005; 93010; 94010; 94640; 97116-GP; 97162-GP; 99285-25; G0480; J1644